=== PATIENT | female | born 1995 | race Caucasian/White ===

== ENCOUNTER 2021-05-18 08:10 | Day surgery (SDC) | payer OTHER, SELFPAY ==
[2021-05-18] VITALS (9 sets, daily range): BP systolic 89–111; BP diastolic 61–77; PULSE 62–82; RESP 16; TEMP 35.9–36.9; O2SAT 95–100; BMI 26.6
[2021-05-18 08:47] LABS: Internal QC Validated? YES +Cl - CLEAR BKGD
[2021-05-18 08:52] LABS: Pregnancy, Urine Negative Negative
[2021-05-18 08:59] LABS: Hematocrit 43.1 % (37-47); Hemoglobin 14.9 g/dL (12.0-15.0); Mean Corp Hgb Conc 34.6 g/dL (32-36); Mean Corpuscular Volume 86.9 fL (81-99); Mean Platelet Vol. 11.1 fl (6.2-12.0); Platelet Count 228 K/mm3 (150-450); RBC Distribution Width CV 11.9 % (11.6-14.6); RBC Distribution Width SD 37.6 fl (35.1-43.9); Red Blood Count 4.96 M/mm3 (4.2-5.4); White Blood Count 6.3 K/mm3 (4.4-11.0)
[2021-05-18] MEDS: Lactated Ringers 1,000 ML 15 ML IV (09:00)
[2021-05-18] MEDS: Lidocaine 1% /Epi 1:100 (50ml) 50 ML VIAL (10:55)
--- NOTE | 2021-05-18 11:09 | PCM.DC ---
Discharge Instructions Diet Discharge Diet: No restrictions Activity Discharge Activity: [place] Drive (More than 24 hours after surgery) Return to work on:: 05/22/21 May resume sexual activity in: 6-8 weeks Ice area for (Minutes): 15 Weight Bearing Status: Weight bearing as tolerated Lifting Restrictions: No restrictions Additional Activity Instructions:: No tampons, intercourse, hot tubs, tub baths, or pools for 6 weeks Dressing / Incision Call your doctor if you observe: Fever of 101 or Higher, Coldness, Increased Pain, Numbness or Tingling, Inability to urinate, Inability to have a bowel movement, Using more than 1 pad per hour, Shortness of breath, Dizziness, Fainting spells, Swelling in the ankles, Chest pain, Increased palpitations (irregular heartbeat), Calf discomfort and Uncontrolled pain Cleanse incision/area with: Soap & Water Additional Dressing/Incision Instructions:: Keep area clean and dry. Let a mild soap and warm water run over the area. Do not scrub in the shower. Pat dry or use a blow dryer on low heat. Cotton underwear only and loose fitting clothing. Can use ice packs wrapped in a towel over the area for 15 min at a time for relief of the pain. There is a suture placed that will dissolve over several weeks. You will have light bleeding-spotting for 1-2 weeks. Follow Up Care Please Follow Up With: Samaria When: 1 week Test Results: Test results from this visit will be discussed in further detail at your follow-up appointment, if applicable. Discharge Plan Admission Primary Reason for Your Visit: surgery Attending Provider: Emelyn Mera Primary Care Provider: Sierra Canales Discharge Orders/Prescriptions Prescriptions: Continued ferrous sulfate 325 mg (65 mg iron) tablet 34 mg PO DAILY RF: 0 simethicone 80 mg Tablet,Chewable 80 mg PO QHS PRN (Reason: Gastric Reflux) RF: 0 cholecalciferol (vitamin D3) [Vitamin D3] 125 mcg (5,000 unit) Tablet 125 mcg PO DAILY RF: 0 Referrals / Follow Up: Sierra Canales PA [Primary Care Provider] - Disposition Disposition (needs filled in before D/C Order can be placed): Home, Self Care
--- NOTE | 2021-05-18 11:13 | OP.PCM_ITS ---
Problems Associated Problem List Diagnoses (1) Imperforate hymen: Report of Operation Date of Procedure: 05/18/21 Pre-Operative Diagnosis: Imperforate hymen Post-Operative Diagnosis: As above Surgery/Procedure Performed:: Hymenectomy, exam under anesthesia, cervical pap smear Description of Surgical Findings:: One pin point opening in the hymen that was just below and to the right of the urethra at the 11 o'clock position. Normal single vagina and single cervix. Normal uterus and adnexa. Surgeon: Samaria gyro compass tester: Sierra Mullins Type of Anesthesia: MAC and Topical Anesth Special Medications: None Specimen's removed: Cervical pap smear Drains: None Estimated Blood Loss (mL): < 50 cc Fluids Replaced: 500 cc Description of Procedure: The patient was taken back to the operating room where MAC anesthesia was found to be adequate. She was prepped and draped in the dorsolithotomy position using yellowfin stirrups. A microperforated hymen was noted with 1 small opening just below and to the right of the urethra. A small tapered dilator was placed through the opening and a normal vaginal canal was palpated. Using a scalpel a stellate incision was made through the hymen after infiltration with 1 percent lidocaine with epinephrine. The hymen was noted to be thick. Good hemostasis was noted. A single 3-0 interrupted suture was placed laterally at the 1 o'clock position where the hymen was incised. Retractors were placed and a normal vagina and vaginal mucosa was noted. The cervix was normal-appearing. A Pap smear was completed. Normal uterus and adnexa palpated. Sponge, needle, instrument counts were correct. The patient was taken to the recovery in stable condition. Sierra Mullins assisted with the entire portion of the procedure from draping the patient, incision of the hymen, exam under anesthesia. Grafts/Implants Used: None Procedure Start Time: 10:55 Procedure Stop Time: 11:05 Complications None Admit VTE Documentation VTE Present on Admission: No VTE Mechan Device Prophylaxis: SCD's
[2021-05-23 16:56] LABS: HPV Reflexed? NOT INDICATED
== END 2021-05-18 23:59 | disposition home or self-care (01) ==
LOC: SDC 08:17 → AC 08:18
PROVIDERS: Referring Provider Obstetrics & Gynecology; Visit Provider Obstetrics & Gynecology
PROC: (CPT 57410; principal; 2021-05-18 09:40)
DX: Q52.3 Imperforate hymen (principal)
CPT/HCPCS: 56700; 00940; 81025; 85027; 86850; 86900; 86901; 88175; J7120; G0145; J2405